=== PATIENT | male | born 1965 | race Caucasian/White ===

== ENCOUNTER → 2017-02-09 | Outpatient (CLI) | payer OTHER ==
[~2017-02-09] MED LIST: AMLO-110 PO; BNC20 PO; CHOL4POW6; CINA90TA PO; CLOP1TAB15 PO; CTP2 PO; DRGTP50 TD; HMLI SC; INSDGI SC; ISR/5 PO; LANS30CA12 PO; LCTX PO; METO50TA7 PO; MINO1TAB PO; PROM12.57 PO; RENAL; [UNRECOGNIZED DRUG - OTHER]
--- NOTE | 2017-02-09 10:48 | DIAGNOSTIC IMAGING REPORT ---
RIGHT FINGER(S) MIN 2 VIEWS CLINICAL HISTORY: DOG BITE RIGHT 3RD FINGER Right trauma. Pain. COMPARISON: None. DISCUSSION: Mild soft tissue edema. Soft tissue vascular calcifications. Nondisplaced cortical fracture distal phalanx right third finger. No evidence of dislocation. Moderate soft tissue edema IMPRESSION: Nondisplaced cortical fracture distal phalanx right third finger. Soft tissue edema. Degenerative change. Electronically signed by: Brando Allred M.D. 02/09/2017 10:47 AM Dictated Date/Time: 02/09/2017 10:46 AM
== END | disposition home or self-care (01) ==
LOC: C.RDSM 10:40
PROVIDERS: ATTEND Physician Assistant
DX: S61.252A Open bite of right middle finger without damage to nail, initial encounter (principal); S62.662A Nondisplaced fracture of distal phalanx of right middle finger, initial encounter for closed fracture; W54.0XXA Bitten by dog, initial encounter

== ENCOUNTER → 2017-02-21 | Outpatient (CLI) | payer OTHER ==
--- NOTE | 2017-02-21 10:22 | DIAGNOSTIC IMAGING REPORT ---
RIGHT THIRD FINGER RADIOGRAPHS CLINICAL HISTORY: Open fracture of tuft of distal phalanx of right third finger. COMPARISON: Right finger radiographs February 09, 2017 and February 04, 2017. FINDINGS: The nondisplaced fracture within the distal tuft of the distal phalanx of the right third finger is unchanged in appearance since exam of February 09, 2017. No additional fractures are identified. There is extensive vascular calcification. IMPRESSION: No change in alignment of the nondisplaced fracture of the distal tuft of the distal phalanx of the right third finger. Electronically signed by: Randall Sorenson M.D. 02/21/2017 10:21 AM Dictated Date/Time: 02/21/2017 10:19 AM
== END | disposition home or self-care (01) ==
LOC: C.RDSM 10:15
PROVIDERS: ATTEND Physician Assistant
DX: S62.632B Displaced fracture of distal phalanx of right middle finger, initial encounter for open fracture (principal); X58.XXXA Exposure to other specified factors, initial encounter

== ENCOUNTER → 2017-03-09 | Outpatient (CLI) | payer OTHER | END | disposition home or self-care (01) | LOC: C.RDSM 09:38 | PROVIDERS: ATTEND Physical Medicine & Rehabilitation Sports Medicine | DX: S62.662D Nondisplaced fracture of distal phalanx of right middle finger, subsequent encounter for fracture with routine healing (principal); X58.XXXD Exposure to other specified factors, subsequent encounter ==